=== PATIENT | female | born 1985 | race Caucasian/White ===

== ENCOUNTER → 2024-03-31 11:13 | Outpatient (CLI) | payer BC, SELFPAY ==
[2024-03-31 12:54] LABS: Hemoglobin A1C% w Est Avg Glu 5.3 % (4.0-6.0)
[2024-03-31 12:58] LABS: Hematocrit 36.6 % (36-46); Hemoglobin 12.4 g/dL (12.0-16.0); Mean Corpuscular Hemoglobin 31.2 PG (26-34); Mean Corpuscular Volume 91.7 fL (80-100); Platelet Count 249 X10^3/uL (150-400); Red Blood Cell Count 3.99 X10^6/uL (4.0-5.2); Red Cell Distribution Width 13.3 % (11.6-14.8); White Blood Cell Count 6.1 X10^3/uL (4.5-11.0)
[2024-03-31 13:14] LABS: Alanine Aminotransferase 18 IU/L (<35); Albumin 4.7 g/dL (3.5-5.0); Albumin Globulin Ratio 1.5 (1.0-2.8); Alkaline Phosphatase 69 U/L (38-126); Aspartate Aminotransferase 28 IU/L (14-36); BUN Creatinine Ratio 11.9 (6-22); Bilirubin Total 0.6 mg/dL (0.2-1.3); Blood Urea Nitrogen 12 mg/dL (7-17); Calcium 9.6 mg/dL (8.4-10.2); Carbon Dioxide 22 mmol/L (22-32); Chloride 107 mmol/L (98-107); Cholesterol 146 mg/dL (140-199); Estimated Glomerular Filt Rate > 60 mL/min (>60); Globulin 3.1 g/dL (1.7-4.1); Glucose 91 mg/dL (70-100); HDL Cholesterol 53 mg/dL (40-60); HEMOLYSIS < 15 (0-50); LDL Cholesterol Calculated 79 mg/dL (<100); Potassium 4.1 mmol/L (3.4-5.1); Sodium 138 mmol/L (137-145); Total Protein 7.8 g/dL (6.3-8.2); Triglycerides 68 mg/dL (35-150)
[2024-03-31 13:42] LABS: TSH w/ Reflex to FT4 1.56 uIU/mL (0.47-4.68)
[2024-03-31 15:36] LABS: Vitamin D 25 Hydroxy (D3) 26.9 ng/mL (30.0-100.0)
[2024-03-31 16:57] LABS: HIV 1 & 2 Ab/Ag 4th Gen Combo NEGATIVE (NEGATIVE); Hep C Virus Ab w/Reflex Quant NEGATIVE s/c (NEGATIVE)
[2024-04-01 09:58] LABS: Prolactin 20.3 ng/mL (3.0-18.6)
== END ==
LOC: LAB 11:14
PROVIDERS: PCP Family Medicine; Referring Provider Family Medicine; Visit Provider Family Medicine
DX: Z00.00 Encounter for general adult medical examination without abnormal findings (principal); E22.1 Hyperprolactinemia; N92.0 Excessive and frequent menstruation with regular cycle
CPT/HCPCS: 36415; 80053; 80061; 82306; 83036; 84146; 84443; 85027; 86803; 87389

== ENCOUNTER → 2024-12-05 08:35 | Outpatient (CLI) | payer BC, SELFPAY ==
[2024-12-05 09:29] LABS: Blood Urea Nitrogen 15 mg/dL (7-17); Calcium 9.8 mg/dL (8.4-10.2); Carbon Dioxide 25 mmol/L (22-32); Chloride 105 mmol/L (98-107); Estimated Glomerular Filt Rate > 60 mL/min (>60); Glucose 103 mg/dL (70-99); HEMOLYSIS < 15 (0-50); Potassium 4.4 mmol/L (3.4-5.1); Sodium 139 mmol/L (137-145)
[2024-12-05 09:42] LABS: Progesterone, Total 2.08 ng/mL
[2024-12-05 09:43] LABS: Prolactin 32.7 ng/mL (3.0-18.6)
[2024-12-05 09:56] LABS: TSH w/ Reflex to FT4 2.03 uIU/mL (0.47-4.68)
[2024-12-05 09:58] LABS: Estradiol, Total 185.5 pg/mL
== END ==
LOC: LAB 08:36
PROVIDERS: PCP Family Medicine; Referring Provider Family Medicine; Visit Provider Family Medicine
DX: E22.1 Hyperprolactinemia (principal); N92.0 Excessive and frequent menstruation with regular cycle; L70.9 Acne, unspecified; Z63.0 Problems in relationship with spouse or partner
CPT/HCPCS: 36415; 80048; 82670; 84144; 84146; 84402; 84403; 84443

== ENCOUNTER → 2025-02-13 10:10 | Outpatient (CLI) | payer BC, SELFPAY | PROVIDERS: PCP Family Medicine; Referring Provider Family Medicine; Visit Provider Family Medicine | DX: E22.1 Hyperprolactinemia (principal) | CPT/HCPCS: 36415; 84146 ==

== ENCOUNTER → 2025-05-22 16:03 | Outpatient (CLI) | payer BC, SELFPAY ==
[2025-05-22 17:18] LABS: Influenza A - CEPHEID Flu A NEGATIVE (NEGATIVE); Influenza B - CEPHEID Flu B NEGATIVE (NEGATIVE)
[2025-05-22 17:23] LABS: COVID-19 CEPHEID 4-PLEX PCR Negative (Negative)
== END ==
PROVIDERS: PCP Family Medicine; Visit Provider Nurse Practitioner Family
DX: J02.9 Acute pharyngitis, unspecified (principal); R05.1 Acute cough
CPT/HCPCS: 87070; 87637